=== PATIENT | female | born 1985 | race Caucasian/White ===

== ENCOUNTER 2016-09-25 20:13 | Emergency (ER) | payer OTHER ==
[~2016-09-25] VITALS: Ht 170.2 cm; Wt 52.3 kg
[2016-09-25 20:15] VITALS: BP 126/79; PULSE 56; TEMP 97.8
== END 2016-09-25 21:43 | disposition home or self-care (01) ==
LOC: COL.ER 20:13
DX: S61.211A Laceration without foreign body of left index finger without damage to nail, initial encounter (principal); W26.0XXA Contact with knife, initial encounter; Y92.009 Unspecified place in unspecified non-institutional (private) residence as the place of occurrence of the external cause; J45.909 Unspecified asthma, uncomplicated; Z90.89 Acquired absence of other organs; Z98.890 Other specified postprocedural states

== ENCOUNTER 2017-10-21 23:07 | Inpatient (IN) | payer OTHER ==
[~2017-10-21] VITALS: Ht 172.7 cm; Wt 70.5 kg
[2017-10-21 23:32] VITALS: BP 131/79; PULSE 57; TEMP 97.8
[2017-10-21] MEDS ORDERED: PRENATAL MVI PO (23:47)
[2017-10-21] MEDS ORDERED: PROAIR HFA0.09 MG/AC IH (23:47)
[2017-10-21] MEDS ORDERED: FOLIC ACID 11 MG/TA1 PO (23:47)
[2017-10-21] MEDS ORDERED: 00186-0370-20 IH (23:48)
[2017-10-21] MEDS ORDERED: SINGULAIR 110 MG/TAB PO (23:48)
[2017-10-21] MEDS ORDERED: ZYRTEC 10MG10 MG PO (23:49)
[2017-10-22] VITALS (56 sets, daily range): BP systolic 93–138; BP diastolic 51–83; PULSE 52–115; TEMP 97.7–98.3
[2017-10-22 00:52] LABS: BASO % 0.3 % (0.0-2.0); EOS # 0.1 (0.0-0.7); EOS % 0.7 % (0-4.0); GRAN # 9.5 (1.4-6.5); GRAN % 79.4 % (42.2-75.2); HEMATOCRIT 39.4 % (37.0-47.0); HEMOGLOBIN 14.2 g/dl (12.5-16.0); LYMPH # 1.6 (1.2-3.4); LYMPH % 13.2 % (20.0-51.0); MEAN CELL VOLUME 86 fl (80.0-100.0); MEAN CORPUSCULAR HEMOGLOBIN 31 pg (27.0-31.0); MEAN CORPUSCULAR HGB CONC 36 g/dl (33.0-37.0); MEAN PLATELET VOLUME 11.5 fl (7.4-10.4); MONO # 0.7 (0.1-0.6); PLATELET COUNT 185 K/mm3 (130-400); RED BLOOD COUNT 4.57 M/mm3 (4.10-5.30); REDCELL DISTRIBUTION WIDTH-CV 12.5 % (11.5-14.5)
[2017-10-23] VITALS: BP 106/56; PULSE 63; TEMP 97.6
[2017-10-23 04:45] VITALS: BP 113/62; PULSE 57; TEMP 97.8
[2017-10-23 07:00] VITALS: BP 102/68; PULSE 74; TEMP 98.1
[2017-10-23] MEDS ORDERED: PERCOCET 325 MG1 TA2 PO (09:19)
[2017-10-23] MEDS ORDERED: IBU800 M1 PO (09:19)
[2017-10-23 16:13] VITALS: BP 114/78; PULSE 68; TEMP 98.1
== END 2017-10-23 17:57 | disposition home or self-care (01) | DRG 775 ==
LOC: LDRO 23:07 → LDR 10-22 00:37 → OB 10-22 00:37
PROVIDERS: Obstetrics & Gynecology
PROC: 10E0XZZ Delivery of Products of Conception, External Approach (ICD-10-PCS; principal; 2017-10-22)
PROC: 0KQM0ZZ Repair Perineum Muscle, Open Approach (ICD-10-PCS; 2017-10-22)
DX: O34.211 Maternal care for low transverse scar from previous cesarean delivery (principal); O48.0 Post-term pregnancy; Z3A.41 41 weeks gestation of pregnancy; Z37.0 Single live birth; J45.909 Unspecified asthma, uncomplicated; O70.1 Second degree perineal laceration during delivery
CPT/HCPCS: J2210; J2405; J2590; J7120

== ENCOUNTER 2019-09-21 21:34 | Inpatient (IN) | payer OTHER ==
[~2019-09-21] VITALS: Ht 172.7 cm; Wt 70.0 kg
[2019-09-21] VITALS (8 sets, daily range): BP systolic 97–145; BP diastolic 5–80; PULSE 44–70; TEMP 97.5
--- NOTE | 2019-09-21 21:25 | NUR ---
HERE WITH SPOUSE FOR LABOR CHECK- VERY UNCOMFORTABLE WITH STRONG CTXS- ASSIST TO BED. SVE /-2. EFM ON. ASKING FOR EPIDURAL 2139 DR CONTRERAS NOTIFIED 2229 UPDATE RE DECEL TO 80-90 WITH BASELINE NOW OF 100BPM AVERAGE LTV.
[~2019-09-21 21:34] MED LIST: 00186-0370-20 IH; ADVAIR IH; BCP TD; COMBIVENT INH14.7 GM IH; FOLIC ACID 11 MG/TA1 PO; IBU800 M1 PO; LEVAQUIN 5500 MG/TAB PO; LORTAB 5/500 501 TAB PO; PERCOCET 325 MG1 TA2 PO; PREDNISONE20 MG PO; PRENATAL MVI PO; PROAIR HFA0.09 MG/AC IH; SINGULAIR; SINGULAIR 110 MG/TAB PO; ZYRTEC 10MG10 MG PO; ZYRTEC-D 12HR 51 TER PO
--- NOTE | 2019-09-21 22:10 | NUR ---
SEATED UPRIGHT FOR EPIDURAL. PROLONGED DECEL TO 90 7 MIN DURING PLACEMENT.TO RT LAT- IMPROVED BASELINE TO 110.
[2019-09-21 22:13] LABS: BASO % 0.2 % (0.0-2.0); EOS # 0.1 (0.0-0.7); EOS % 0.6 % (0-4.0); GRAN # 6.3 (1.4-6.5); HEMATOCRIT 37.2 % (37.0-47.0); LYMPH # 1.5 (1.2-3.4); LYMPH % 17.1 % (20.0-51.0); MEAN CELL VOLUME 89 fl (80.0-100.0); MEAN CORPUSCULAR HEMOGLOBIN 31 pg (27.0-31.0); MEAN CORPUSCULAR HGB CONC 35 g/dl (33.0-37.0); MONO # 0.7 (0.1-0.6); MONO % 7.9 % (1.7-9.3); PLATELET COUNT 178 K/mm3 (130-400); RED BLOOD COUNT 4.19 M/mm3 (4.10-5.30); REDCELL DISTRIBUTION WIDTH-CV 13.2 % (11.5-14.5)
--- NOTE | 2019-09-21 22:30 | NUR ---
DR CONTRERAS UPDATED ON LOW BASELINE AND PROLONGED DECEL. 2321 DR CONTRERAS HERE AROM MECONIUM. NATH INSERTED
[2019-09-22] VITALS (12 sets, daily range): BP systolic 99–126; BP diastolic 37–74; PULSE 54–81; TEMP 97.6–98.3
--- NOTE | 2019-09-22 00:07 | NUR ---
AFTER SEVERAL PUSHES- TO MOTHERS ABDOMEN FOR CORD CUTTNING BY DAD AND ASSESSMENT
--- NOTE | 2019-09-22 02:47 | NUR ---
ASSIST TO WC THEN TO 208. LEFT LEG NOT STEADY YET. DENIES NEED FOR PAIN MEDS.
[2019-09-22] MEDS ORDERED: WELLBUTRIN SR150 M1 (04:49)
--- NOTE | 2019-09-22 10:12 | NUR ---
Initial visit; Family thanked Utility Inspector for offering congratulations and God's blessings for the of their son. Utility Inspector thanked family for choosing [facility].
[2019-09-22] MEDS ORDERED: MOTRIN 800800 MG/TAB PO (19:05)
[2019-09-23] VITALS: BP 113/63; PULSE 66; TEMP 98.1
[2019-09-23 07:40] VITALS: BP 114/65; PULSE 66; TEMP 97.5
--- NOTE | 2019-09-23 13:38 | NUR ---
1320 DISCHARGE INSTRUCTIONS REVIEWED WITH PATIENT. ALL QUESTIONS ANSWERED. PATIENT VERBALIZED UNDERSTANDING. PATIENT WILL NOTIFY THIS RN WHEN READY TO LEAVE.
--- NOTE | 2019-09-23 13:51 | NUR ---
1350 ALL PESONAL BELONGINGS GATHERED FROM PATIENT ROOM. PATIENT LEFT AMBULATORY AND IN NO APPARENT. PATIENT ACCOMPANIED BY SPOUSE AND ELIER LAM.
== END 2019-09-23 13:50 | disposition home or self-care (01) | DRG 807 ==
LOC: LDRO 21:34 → LDR 21:44 → OB 21:44 → LDRO 09-27 14:18
PROVIDERS: Obstetrics & Gynecology; ADMIT Obstetrics & Gynecology
PROC: 10E0XZZ Delivery of Products of Conception, External Approach (ICD-10-PCS; principal; 2019-09-21)
PROC: 0KQM0ZZ Repair Perineum Muscle, Open Approach (ICD-10-PCS; 2019-09-21)
DX: O34.219 Maternal care for unspecified type scar from previous cesarean delivery (principal); Z37.0 Single live birth; Z3A.39 39 weeks gestation of pregnancy; O77.0 Labor and delivery complicated by meconium in amniotic fluid; O70.1 Second degree perineal laceration during delivery; O99.52 Diseases of the respiratory system complicating childbirth; J45.909 Unspecified asthma, uncomplicated
CPT/HCPCS: J2590; J7120

== ENCOUNTER 2020-09-27 18:59 | Emergency (ER) | payer OTHER ==
[~2020-09-27] VITALS: Ht 170.2 cm; Wt 54.5 kg
[~2020-09-27 18:59] MED LIST changes: +MOTRIN 800800 MG/TAB PO; +WELLBUTRIN SR150 M1
[2020-09-27 19:30] VITALS: BP 119/76; PULSE 69; TEMP 98.5
== END 2020-09-27 20:24 | disposition left against medical advice (07) ==
LOC: COL.ER 18:59
DX: R51.9 Headache, unspecified (principal)